=== PATIENT | male | born 1965 | race African-American/Black ===

== ENCOUNTER 2017-09-11 12:16 | Emergency (ER) | payer OTHER ==
[~2017-09-11] VITALS: Ht 185.4 cm; Wt 83.9 kg
[2017-09-11 12:47] LABS: ABSOLUTE BASOPHIL COUNT 0 /CUMM (0.0-0.2); ABSOLUTE EOSINOPHIL COUNT 0.4 /CUMM (0.0-0.7); ABSOLUTE GRANULOCYTE CT 2.7 /CUMM (1.4-6.5); ABSOLUTE LYMPH COUNT 1.4 /CUMM (1.2-3.4); ABSOLUTE MONOCYTE COUNT 0.5 /CUMM (0.10-0.60); BASOPHIL % 0.7 % (0.0-2.0); EOSINOPHIL % 7.9 % (0-5); GRANULOCYTE % 53.7 % (42.2-75.2); MEAN CORPUSCULAR HGB 31.6 PG (27.0-31.0); MEAN CORPUSCULAR HGB CONC 33.2 G/DL (33.0-37.0); MEAN CORPUSCULAR VOLUME 95.2 FL (80.0-94.0); MEAN PLATELET VOLUME 7.9 FL (7.4-10.4); PLATELET COUNT 199 /CUMM (130-400)
--- NOTE | 2017-09-11 12:53 | ED GENERAL ADULT ---
History of Present Illness General Chief Complaint: General Adult Stated Complaint: PT SIB DR FOR BP 200 Source: patient Exam Limitations: no limitations Vital Signs & Intake/Output Vital Signs & Intake/Output Vital Signs Date Time Temp Pulse Resp B/P B/P Pulse O2 O2 Flow FiO2 Mean Ox Delivery Rate 09/11 1642 79 18 153/110 96 Room Air 09/11 1620 83 18 156/109 97 Room Air 09/11 1601 77 160/104 09/11 1601 77 18 160/104 97 Room Air 09/11 1551 160/114 09/11 1511 150/118 09/11 1433 152/118 09/11 1425 144/118 09/11 1355 74 18 180/122 95 Room Air 09/11 1334 171/119 09/11 1325 183/120 09/11 1320 183/120 09/11 1314 Room Air 09/11 1314 183/120 09/11 1256 194/111 09/11 1255 86 18 204/131 97 Room Air 09/11 1225 96.2 94 18 190/118 95 Room Air Allergies Coded Allergies: shrimp (ANAPHYLAXIS 09/11/17) Reconcile Medications No Known Home Medications Triage Note: 52 Y/O MALE SENT FROM [facility] FOR EVAL OF HYPERTENSION. STATES HE HAS BEEN ON LISINOPRIL AND LABETOLOL FOR YEARS BUT OFTEN FORGETS TO TAKE THEM IN THE MORNING - DID NOT TAKE MEDS TODAY. B/P 190/118 IN TRIAGE - WAS OVER 200 SYSTOLIC IN MD OFFICE PRIOR TO ARRIVAL HERE. PT C/O HEADACHE AND "CHEST PAINS" THIS MORNING. DENIES AT PRESENT. Triage Nurses Notes Reviewed? yes Onset: Abrupt Duration: day(s): (1), constant, continues in ED, getting worse Timing: recent history Injury Environment: home Severity: mild, moderate Severity Numbers: 2 No Modifying Factors: none HPI: 52-year-old male history of hypertension presents for evaluation of elevated blood pressure. Patient reports that he went to see his doctor today for bilateral knee pain that he's been having for several weeks now. When he arrived they took his blood pressure and it was elevated so he was referred here. Patient reports currently he is asymptomatic and is feeling fine. He reports that when he woke up this morning around 8:00 he did have some indigestion and heartburn. He denies any chest pain or shortness of breath. The indigestion and heartburn lasted for about 15 minutes and resolved after he drank some water. No nausea vomiting sweats or chills hemoptysis lower extremity edema. Patient is prescribed lisinopril and labetalol but does not take it regularly. He last took it 2 days ago. He does report a mild pressure headache no changes in vision. He states his blood pressure is usually very high even when he does take his medicine. He's never had a heart attack before. Patient also notes that he drinks alcohol daily. His last trip was last night. He denies any history of alcohol withdrawal or withdrawal seizures. (Ant Singh) Past History Travel History Traveled to [place] past 21 day No Medical History Any Pertinent Medical History? see below for history Neurological: NONE EENT: NONE Cardiovascular: NONE Respiratory: asthma Gastrointestinal: NONE Hepatic: NONE Renal: NONE Musculoskeletal: NONE Psychiatric: NONE Endocrine: NONE Blood Disorders: NONE Cancer(s): NONE [employer]IAN/Reproductive: NONE Tetanus Vaccine: 03/22/12 Surgical History Surgical History: non-contributory Psychosocial History What is your primary language [place] Tobacco Use: Never used Family History Hx Contributory? No (Ant Singh) Review of Systems Review of Systems Constitutional: Reports: no symptoms. EENTM: Reports: no symptoms. Respiratory: Reports: no symptoms. Cardiovascular: Reports: no symptoms. GI: Reports: no symptoms. Genitourinary: Reports: no symptoms. Musculoskeletal: Reports: no symptoms. Skin: Reports: no symptoms. Neurological/Psychological: Reports: headache. Hematologic/Endocrine: Reports: no symptoms. Immunologic/Allergic: Reports: no symptoms. All Other Systems: Reviewed and Negative (Ant Singh) Physical Exam Physical Exam General Appearance: well developed/nourished, no apparent distress, alert, awake Head: atraumatic, normal appearance Eyes: Bilateral: normal appearance, PERRL, EOMI. Ears, Nose, Throat: normal pharynx, normal ENT inspection, hearing grossly normal Neck: normal inspection, supple, full range of motion Respiratory: normal breath sounds, chest non-tender, no respiratory distress, lungs clear Cardiovascular: regular rate/rhythm, normal peripheral pulses Peripheral Pulses: 2+ radial (R), 2+ radial (L) Gastrointestinal: soft, non-tender Back: normal inspection, normal range of motion, no vertebral tenderness Extremities: normal inspection, normal range of motion, no edema Neurologic/Psych: no motor/sensory deficits, awake, alert, oriented x 3, normal gait, normal mood/affect Skin: intact, normal color, warm/dry Core Measures ACS in differential dx? No CVA/TIA Diagnosis: No Sepsis Present: No Sepsis Focused Exam Completed? No (Davis HAMMONDS,Ant) Progress Differential Diagnoses I considered the following diagnoses in my evaluation of the patient: [ Hypertensive urgency, hypertensive emergency, aortic dissection, acute coronary syndrome, acute renal failure, electrolyte abnormality, PE] Plan of Care: Orders Procedure Date/time Status TROPONIN LEVEL 09/11 1540 Complete EKG 09/11 1540 Active Add-on Test (ER Only) 09/11 1258 Active Add-on Test (ER Only) 09/11 1256 Active TSH REFLEX 09/11 1235 Complete MAGNESIUM 09/11 1235 Complete ETHANOL 09/11 1235 Complete B-TYPE NATRIURETIC PEP (BNP) 09/11 1235 Complete URINALYSIS 09/11 1225 Complete TROPONIN LEVEL 09/11 1225 Complete COMPREHENSIVE METABOLIC PANEL 09/11 1225 Complete CBC WITHOUT DIFFERENTIAL 09/11 1225 Complete EKG 09/11 1218 Active Current Medications Sig/Mac Start time Last Medication Dose Stop Time Status Admin Labetalol HCl 20 MG ONCE ONE 09/11 1600 CAN (Trandate) 09/11 1601 Hydralazine HCl 10 MG ONCE ONE 09/11 1415 CAN (Apresoline) 09/11 1416 Laboratory Tests 09/11/17 1548: Troponin I 0.01 09/11/17 1440: Urine Color YEL, Urine Clarity CLEAR, Urine pH 6.0, Ur Specific [place] 1.025, Urine Protein NEG, Urine Ketones NEG, Urine Nitrite NEG, Urine Bilirubin NEG, Urine Urobilinogen 0.2, Ur Leukocyte Esterase NEG, Ur Microscopic EXAM NOT REQUIRED, Urine Hemoglobin NEG, Urine Glucose NEG 09/11/17 1235: Anion Gap 12, Estimated GFR > 60, BUN/Creatinine Ratio 21.0, Glucose 107 H, Calcium 9.7, Magnesium 1.7, Total Bilirubin 1.4 H, AST 85 H, ALT 116 H, Alkaline Phosphatase 89, Troponin I 0.01, Mla-G-Yiijrvvrbzn Pept 88.6, Total Protein 8.1, Albumin 4.6, Globulin 3.5, Albumin/Globulin Ratio 1.3, TSH &T3 & Free T4 Intrp 0.772, CBC w Diff NO MAN DIFF REQ, RBC 4.30 L, MCV 95.2 H, MCH 31.6 H, MCHC 33.2, RDW 13.0, MPV 7.9, Gran % 53.7, Lymphocytes % 28.5, Monocytes % 9.2, Eosinophils % 7.9 H, Basophils % 0.7, Absolute Granulocytes 2.7, Absolute Lymphocytes 1.4, Absolute Monocytes 0.5, Absolute Eosinophils 0.4, Absolute Basophils 0, Serum Alcohol < 10.0 Patient is here with elevated blood pressure. On initial evaluation he is 190s over 120s. He currently has no symptoms and is feeling well. He did note some heartburn/indigestion this morning when he first woke up. No shortness of breath. He also has a mild headache. Initial EKG is not showing any acute findings. Chest x-ray CT head and labs ordered. Patient medicated with 10 mg IV labetalol 300 mg oral labetalol. Patient is noncompliant with his medications. Blood work is not showing any acute findings. Head CT is negative chest x-rays clear. Patient's blood pressure continues to be elevated specifically his diastolic blood pressure. Patient was given 20 mg of IV Lasix in attempt to reduce his volume to try and reduce the diastolic blood pressure. He was also given another 10 of IV labetalol. A repeat EKG and troponin were obtained and are negative and unchanged. repeat blood pressure is now 160s over 104. Patient remains completely asymptomatic and is feeling well. Advised patient he needs to reduce his alcohol intake and become compliant with his medications. Also follow up with the primary care doctor. Discussed return precautions in detail case discussed with Dr. Arteaga he agrees. Diagnostic Imaging: Viewed by Me: CT Scan. Discussed w/RAD: CT Scan. Radiology Impression: PATIENT: FLOR LAFLEUR PRESENT AGE: 52 PATIENT ACCOUNT NO: [id number] : 63 LOCATION: [facility] ORDERING PHYSICIAN: Ida HAMMONDS SERVICE DATE: 09/11/17 EXAM TYPE: RAD - XRY-CHEST XRAY, TWO VIEWS EXAMINATION: XR CHEST CLINICAL INFORMATION: Evaluate for cardiomegaly hypertension. COMPARISON: Prior chest May 2014 TECHNIQUE: 2 views of the chest were obtained. FINDINGS: No significant abnormality is noted involving the heart, lungs, mediastinum, bony thorax or soft tissues. IMPRESSION : Normal chest. DICTATED BY: Yassine Cespedes MD DATE/TIME DICTATED:09/11/171332 REGIONAL OPERATIONS MANAGER:ABDIEL DATE/TIME TRANSCRIBED:09/11/171332 CONFIDENTIAL, DO NOT COPY WITHOUT APPROPRIATE AUTHORIZATION. <Electronically signed in Other Vendor System> SIGNED BY: Yassine Cespedes MD 09/11/171338, PATIENT: FLOR LAFLEUR PRESENT AGE: 52 PATIENT ACCOUNT NO: [id number] : 63 LOCATION: [facility] ORDERING PHYSICIAN: Ida HAMMONDS SERVICE DATE: 09/11/17 EXAM TYPE: CAT - CT HEAD WO IV CONTRAST EXAMINATION: CT HEAD WITHOUT CONTRAST CLINICAL INFORMATION: Headache, hypertension. Rule out intracranial hemorrhage. COMPARISON: None TECHNIQUE: Contiguous axial imaging was performed from the skull base to vertex without intravenous administration of contrast. DLP: 614.76 mGy-cm FINDINGS: There is no evidence of acute intracranial hemorrhage or territorial infarction. No abnormal mass effect or midline shift is seen. Rey to white matter differentiation is well preserved. No extra-axial fluid collections are identified. The ventricles are normal in size. There is mild periventricular hypodensity consistent with chronic small vessel ischemic disease. The osseous structures and soft tissues are normal. The mastoid air cells and visualized portions of the paranasal sinuses are well aerated. IMPRESSION: 1. Findings consistent with chronic small vessel ischemic disease. 2. No acute intracranial hemorrhage. DICTATED BY: Iftikhar Shen MD DATE/TIME DICTATED:09/11/171419 REGIONAL OPERATIONS MANAGER:ABDIEL DATE/TIME TRANSCRIBED:09/11/171419 CONFIDENTIAL, DO NOT COPY WITHOUT APPROPRIATE AUTHORIZATION. <Electronically signed in Other Vendor System> SIGNED BY: Iftikhar Shen MD 09/11/171426 Initial ED EKG: normal sinus rhythm, no ST T wave changes, CONSIDER ANTEROSEPTAL INFARCT Prior EKG: unchanged Repeat EKG: unchanged (Ant Singh) Differential Diagnoses I considered the following diagnoses in my evaluation of the patient: (Tim Arteaga DO) Departure Departure Disposition: HOME OR SELF CARE Condition: Stable Clinical Impression Primary Impression: Elevated blood pressure reading with diagnosis of hypertension Referrals: Michelle Herbert APRN (PCP/Family) Additional Instructions: You need to be compliant with her blood pressure medicines. Take both blood pressure medicines as directed every day do not skip doses. He should also decrease her alcohol intake as this can lead to elevated blood pressure. Make a follow-up with YOUr primary care doctor to review all results of today's visit. Monitor symptoms closely return immediately with any concerns. Departure Forms: Customer Survey General Discharge Information Prescriptions: Current Visit Scripts No Known Home Medications (Ant Singh) Departure Comments 09/11/17 I saw and personally evaluated the patient and I agree with the PAs evaluation. Elevated blood pressure. Noncompliance with medications. Denies any chest pain on my questioning. Serial troponins unremarkable. Blood pressure came down. He will take his medications as directed. Follow-up as instructed. (Chandler YU,Tim Silveira) Critical Care Note Critical Care Note Critical Care Time: non-applicable (Ant Singh)
--- NOTE | 2017-09-11 13:39 | RADIOLOGY REPORT ---
EXAMINATION: XR CHEST CLINICAL INFORMATION: Evaluate for cardiomegaly hypertension. COMPARISON: Prior chest May 2014 TECHNIQUE: 2 views of the chest were obtained. FINDINGS: No significant abnormality is noted involving the heart, lungs, mediastinum, bony thorax or soft tissues. IMPRESSION: Normal chest.
--- NOTE | 2017-09-11 14:27 | CT SCAN REPORT ---
EXAMINATION: CT HEAD WITHOUT CONTRAST CLINICAL INFORMATION: Headache, hypertension. Rule out intracranial hemorrhage. COMPARISON: None TECHNIQUE: Contiguous axial imaging was performed from the skull base to vertex without intravenous administration of contrast. DLP: 614.76 mGy-cm FINDINGS: There is no evidence of acute intracranial hemorrhage or territorial infarction. No abnormal mass effect or midline shift is seen. Rey to white matter differentiation is well preserved. No extra-axial fluid collections are identified. The ventricles are normal in size. There is mild periventricular hypodensity consistent with chronic small vessel ischemic disease. The osseous structures and soft tissues are normal. The mastoid air cells and visualized portions of the paranasal sinuses are well aerated. IMPRESSION: 1. Findings consistent with chronic small vessel ischemic disease. 2. No acute intracranial hemorrhage.
[2017-09-11 16:42] VITALS: BP 153/110
== END 2017-09-11 17:04 ==
LOC: ERH 12:16
PROVIDERS: Physician Assistant
DX: I10 Essential (primary) hypertension (principal)
CPT/HCPCS: 71046; 81003; 93005; 93010; 96374; 96375; 96376; 99291; G0480; J1940